=== PATIENT | female | born 1980 | race Two or more races ===

== ENCOUNTER 2016-11-23 13:03 | Emergency (ER) | payer OTHER ==
[~2016-11-23] VITALS: Ht 152.4 cm; Wt 74.8 kg
[2016-11-23 13:07] VITALS: BP 125/89
== END 2016-11-23 13:59 | disposition home or self-care (01) ==
LOC: ER 13:07
DX: J20.8 Acute bronchitis due to other specified organisms (principal); F32.9 Major depressive disorder, single episode, unspecified; F41.9 Anxiety disorder, unspecified; I10 Essential (primary) hypertension
CPT/HCPCS: 99283; A4606; Z7610

== ENCOUNTER 2017-01-08 21:32 | Emergency (ER) | payer OTHER ==
[~2017-01-08] VITALS: Ht 154.9 cm; Wt 74.8 kg
--- NOTE | 2017-01-08 21:40 | NUR ---
PATIENT TO ED DT HEADACHE AND DIZZINESS SINCE THIS MORNING. PATIENT ALSO COMPLAINTS OF NAUSEA, DENIES VOMITTING. SKIN IS WARM TO TOUCH AND NON DIAPHORETIC. PATIENT IS AFEBRILE
--- NOTE | 2017-01-08 22:16 | NUR ---
MD GOMEZ AT BEDSIDE
[2017-01-08] MEDS ORDERED: METOCLOPRAMIDE HCL 10 MG/2 ML VIAL ONE (22:29)
[2017-01-08] MEDS ORDERED: METOCLOPRAMIDE HCL 10 MG/2 ML VIAL IM ONE (22:30)
--- NOTE | 2017-01-08 23:17 | NUR ---
Patient is resting comfortably in bed with eyes closed. Easily aroused. VSS
[2017-01-09 00:10] VITALS: BP 119/63
--- NOTE | 2017-01-09 00:10 | NUR ---
Patient discharged to home in stable condition. Written and verbal after care instructions given. Patient verbalizes understanding of instruction. ambulatory with a steady gait noted. pt [id number] no acute distress noted, resp even and unlabored. pt at bedside to take pt home.
== END 2017-01-09 00:11 | disposition home or self-care (01) ==
LOC: ER 21:33
DX: G44.209 Tension-type headache, unspecified, not intractable (principal); F41.9 Anxiety disorder, unspecified; F32.9 Major depressive disorder, single episode, unspecified; I10 Essential (primary) hypertension
CPT/HCPCS: 96372; 99284; A4606; J2765; Z7610